=== PATIENT | male | born 1965 | race Caucasian/White ===

== ENCOUNTER 2020-08-25 09:34 | Emergency (ER) | payer OTHER ==
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
[2020-08-25 10:43] VITALS: BP 139/91; PULSE 80
== END 2020-08-25 11:05 | disposition home or self-care (01) ==
LOC: LB.ED 09:34
DX: T68.XXXA Hypothermia, initial encounter (principal); E78.00 Pure hypercholesterolemia, unspecified; I10 Essential (primary) hypertension; E11.9 Type 2 diabetes mellitus without complications; Z79.84 Long term (current) use of oral hypoglycemic drugs; Z79.899 Other long term (current) drug therapy
CPT/HCPCS: 99282; 99283

== ENCOUNTER 2020-11-12 08:35 | Day surgery (SDC) | payer OTHER ==
[~2020-11-12 08:35] MED LIST: Metoclopramide 10 MG/2 ML SDV IV PRN; Sodium Chloride 0.9% 1,000 ML IV SCH
[2020-11-12] MEDS ORDERED: Propofol 1,000 MG/100 ML SDV ONE (10:15)
[2020-11-12 10:35] VITALS: BP 110/70; PULSE 68
--- NOTE | 2020-11-12 12:18 | OR ---
DATE OF OPERATION: 11/12/2020 SURGEON: Rogerio Joiner MD PREOPERATIVE DIAGNOSIS: Rectal bleeding. POSTOPERATIVE DIAGNOSIS: Rectal bleeding. PROCEDURE: Colonoscopy. ANESTHESIA: MAC. ESTIMATED BLOOD LOSS: None. COMPLICATIONS: None. INDICATION FOR THE PROCEDURE: The patient is a 55-year-old male who has had previous colonoscopy. He is here today due to some rectal bleeding that is mostly on the toilet paper. Otherwise, denies any constipation. DESCRIPTION OF THE PROCEDURE: Informed consent was obtained from the patient. The patient was taken to the operating room and placed on the table in left lateral decubitus position. Monitored anesthesia care was administered. Digital rectal exam performed was normal. Colonoscope was then advanced through the anus and directed toward the cecum. Cecum was reached and identified by appendiceal orifice and ileocecal valve. Colonoscope was then slowly withdrawn. He did have a few small sigmoid diverticula. Retroflexion performed in the rectum showing some slightly enlarged internal hemorrhoids, none currently bleeding. The colonoscope was then withdrawn. FINDINGS: Mild sigmoid diverticulosis and internal hemorrhoids. RECOMMENDATIONS: Would recommend repeat screening colonoscopy in 10 years. Would also recommend plenty of water and high-fiber diet and avoiding constipation for his hemorrhoids and diverticula. If bleeding persists, may consider hemorrhoid banding in the office. UMESH/AMBER /[id number]
== END 2020-11-12 11:10 | disposition home or self-care (01) ==
LOC: LB.SDS 08:35
PROVIDERS: ATTEND Surgery
DX: K57.31 Diverticulosis of large intestine without perforation or abscess with bleeding (principal); K64.8 Other hemorrhoids; E11.9 Type 2 diabetes mellitus without complications
CPT/HCPCS: 82947; J2704; J7030

== ENCOUNTER 2023-10-03 17:59 | Emergency (ER) | payer BC ==
[2023-10-03] MEDS ORDERED: Ondansetron 4 MG Tab.DIS ONE (19:00)
[2023-10-03 19:32] VITALS: BP 132/87; PULSE 103
== END 2023-10-03 19:18 | disposition home or self-care (01) ==
LOC: LB.ED 17:59
DX: R42 Dizziness and giddiness (principal); I10 Essential (primary) hypertension; E78.00 Pure hypercholesterolemia, unspecified; E11.9 Type 2 diabetes mellitus without complications; Z79.84 Long term (current) use of oral hypoglycemic drugs; Z79.899 Other long term (current) drug therapy; Z90.49 Acquired absence of other specified parts of digestive tract
CPT/HCPCS: 99283; A9270-GY; Q0162

== ENCOUNTER 2025-03-02 13:37 | Emergency (ER) | payer BC ==
[2025-03-02] MEDS: Lidocaine 1% PF 2 ML SDV INFILT ONE (14:15)
[2025-03-02] MEDS: Bacitracin Oint 1 GM U/D Packet TOP ONE (14:32)
[2025-03-02] MEDS: Diphtheria,Pertussis(Acell),Tetanus Vaccine 0.5 ML Syringe IM ONE (15:25)
[2025-03-02 20:31] VITALS: BP 152/91; PULSE 69
== END 2025-03-02 15:30 | disposition home or self-care (01) ==
LOC: LB.ED 13:37
DX: S62.636A Displaced fracture of distal phalanx of right little finger, initial encounter for closed fracture (principal); S61.214A Laceration without foreign body of right ring finger without damage to nail, initial encounter; I10 Essential (primary) hypertension; E78.00 Pure hypercholesterolemia, unspecified; E11.9 Type 2 diabetes mellitus without complications; Z90.49 Acquired absence of other specified parts of digestive tract; Z79.84 Long term (current) use of oral hypoglycemic drugs; Z79.899 Other long term (current) drug therapy; X58.XXXA Exposure to other specified factors, initial encounter; Z23 Encounter for immunization
CPT/HCPCS: 12001; 73140; 90471; 90715; 96372; 99283; J0696; J2003